=== PATIENT | female | born 1995 | race Caucasian/White ===

== ENCOUNTER 2018-10-12 02:53 | Emergency (ER) | payer OTHER ==
[~2018-10-12] VITALS: Ht 149.9 cm; Wt 98.4 kg
[2018-10-12] MEDS ORDERED: HYDROXYZINE HCL25 MG PO (03:14)
[2018-10-12] MEDS ORDERED: PREDNISONE20 MG PO (03:14)
[2018-10-12] MEDS ORDERED: KEFLEX500 MG PO (03:14)
== END 2018-10-12 03:25 | disposition home or self-care (01) ==
LOC: FSED 02:53
DX: S00.86XA Insect bite (nonvenomous) of other part of head, initial encounter (principal); S50.862A Insect bite (nonvenomous) of left forearm, initial encounter; S50.861A Insect bite (nonvenomous) of right forearm, initial encounter; S60.562A Insect bite (nonvenomous) of left hand, initial encounter; S60.561A Insect bite (nonvenomous) of right hand, initial encounter; S40.262A Insect bite (nonvenomous) of left shoulder, initial encounter; S20.469A Insect bite (nonvenomous) of unspecified back wall of thorax, initial encounter; L03.211 Cellulitis of face; L03.114 Cellulitis of left upper limb; L03.113 Cellulitis of right upper limb; Y92.59 Other trade areas as the place of occurrence of the external cause
CPT/HCPCS: 99282